=== PATIENT | male | born 1960 | race Caucasian/White ===

== ENCOUNTER 2018-05-17 07:04 | Emergency (ER) | payer BC ==
[~2018-05-17] VITALS: Ht 177.8 cm; Wt 125.1 kg
[~2018-05-17 07:04] MED LIST: ALLOPURINOL100 MG PO; AMLODIPINE BESY10 MG PO; ASPIRIN81 M1 PO; BENAZEPRIL HCL40 MG PO; HYDROCHLOROTHIA25 MG PO; LOPID600 MG PO; ULTRAM50 MG PO; ZOFRAN4 MG PO
[2018-05-17 07:41] LABS: BASOPHIL (%) 0.4 % (0-1); BASOPHIL COUNT 0.1 K/uL (0-0.1); EOSINOPHIL (%) 3.4 % (0-5); EOSINOPHIL COUNT 0.4 K/uL (0-0.3); HEMATOCRIT 48.2 % (38.0-50.0); HEMOGLOBIN 16.2 G/DL (12.5-16.6); IMMATURE GRANULOCYTE (%) 0.4 % (0.0-0.7); LYMPHOCYTE (%) 11.7 % (15-42); LYMPHOCYTE COUNT 1.4 K/uL (1.0-2.8); MCH 29.8 PG (29.0-34.0); MCHC 33.6 G/DL (30.0-36.0); MCV 88.8 FL (86-99); MONOCYTE (%) 4.6 % (3-12); MONOCYTE COUNT 0.6 K/uL (0-0.8); NEUTROPHIL (%) 79.5 % (45-76); NEUTROPHIL COUNT 9.6 K/uL (1.8-6.4); PLATELET COUNT 264 K/uL (156-360); RBC DIS.WIDTH-CV 13.3 % (11.8-14.6); RBC DIS.WIDTH-SD 43.2 % (39-53); RED BLOOD COUNT 5.43 M/uL (4.00-5.50); WHITE BLOOD COUNT 12.1 K/uL (4.1-10.2)
[2018-05-17 07:50] LABS: ALBUMIN 4.4 g/dL (3.2-4.8); CHLORIDE 106 mEq/L (99-109); POTASSIUM 4.1 mEq/L (3.7-5.4); SODIUM 140 mEq/L (136-147)
[2018-05-17 07:52] LABS: GLUCOSE 211 mg/dL (70-99)
[2018-05-17 07:53] LABS: TOTAL PROTEIN 6.9 g/dL (6.4-8.3)
[2018-05-17 07:54] LABS: TOTAL BILIRUBIN 0.8 mg/dL (0.0-1.0)
[2018-05-17 07:56] LABS: ALKALINE PHOSPHATASE 91 IU/L (3-129); CREATININE 1.4 mg/dL (0.6-1.3); GFR ESTIMATE (CALCULATED) 55 mL/min/ (58.99-99999)
[2018-05-17 07:57] LABS: UREA NITROGEN (BUN) 46 mg/dL (9-23)
[2018-05-17 07:58] LABS: AST (GOT) 11 IU/L (2-34)
[2018-05-17 07:59] LABS: ALT (GPT) 15 IU/L (3-49); LIPASE 13 U/L (1.0-51.0)
[2018-05-17 08:22] LABS: APPEARANCE CLEAR ((CLEAR)); BILIRUBIN NEGATIVE; BLOOD NEGATIVE; COLOR YELLOW ((YELLOW)); GLUCOSE (STRIP) >=500; KETONES NEGATIVE; LEUKOCYTES NEGATIVE; NITRITE NEGATIVE; PROTEIN (STRIP) NEGATIVE; SPECIFIC GRAVITY 1.024 (1.000-1.030); UCUL ADDED? NO; UROBILINOGEN 0.2 MG/DL (0.2-1.0)
[2018-05-17] MEDS ORDERED: ZOFRAN ODT4 MG PO (10:32)
[2018-05-17] MEDS ORDERED: FLAGYL500 MG PO (10:32)
[2018-05-17] MEDS ORDERED: BENTYL20 MG PO (10:32)
[2018-05-17 10:58] VITALS: BP 120/88
== END 2018-05-17 10:58 | disposition home or self-care (01) ==
LOC: EME 07:04
PROVIDERS: Emergency Medicine
DX: K52.9 Noninfective gastroenteritis and colitis, unspecified (principal); E86.0 Dehydration; K57.30 Diverticulosis of large intestine without perforation or abscess without bleeding; K76.0 Fatty (change of) liver, not elsewhere classified; R42 Dizziness and giddiness; I10 Essential (primary) hypertension; Z79.82 Long term (current) use of aspirin
CPT/HCPCS: 74177; 80053; 81003; 83605; 83690; 85025; 86850; 86900; 86901; 87493; 87506; 99281; 99285; C9113; J7030